=== PATIENT | female | born 1995 | race Caucasian/White ===

== ENCOUNTER 2016-09-09 01:45 | Emergency (ER) | payer OTHER ==
[2016-09-09 01:59] VITALS: BP 150/79; PULSE 114; TEMP 98.5; BMI 35.9
[2016-09-09] MEDS ORDERED: SODIUM CHLORIDE 1,000 ML IV STA (02:14)
--- NOTE | 2016-09-09 02:22 | PDOC ---
History of Present Illness - General Stated Complaint: FLU SYMPTOM Time Seen by Provider: 09/09/16 02:01 History Source: Patient, Significant Other Exam Limitations: No Limitations - History of Present Illness Initial Comments: 09/09/16 02:16 21yo Female patient presented to ED via EMS with boyfriend c/o general illness and panic attack. Boyfriend states patient diagnosed with influenza yesterday at Urgent Care. Patient went to urgent care because of fever 101.6 and panic attack due to not feeling well. Patient prescribed Tamiflu and cough suppressant per boyfriend. Po solids and liquid intake normal. Patient got up to use bathroom this am and fell to floor hyperventilating because "I am not feeling well." Boyfriend reports patient has never been sick. LNMP: 1st week of Aug. Patient denies fever, CP, Abd pain, n/v/d, rash, change in appetite, hematuria, dysuria, vaginal bleeding, discharge or odor. She denies any other complaints. Timing/Duration: other (2 days.) Modifying Factors: worse with: cold therapy, eating, immobilization, medication , movement, rest, other Associated Symptoms: denies: denies symptoms, chest pain, cough, diaphoresis, fever/chills, headaches, loss of appetite, malaise, nausea/vomiting, rash, seizure, shortness of breath, syncope, weakness, other Past History - Travel Traveled outside of the country in the last 30 days: No Close contact w/someone who was outside of country & ill: No - Past Medical History Allergies/Adverse Reactions: Allergies Allergy/AdvReac Type Severity Reaction Status Date / Time No Known Allergies Allergy Verified 09/09/16 01:59 Psychiatric Problems: Yes (anxiety) - Psycho/Social/Smoking Cessation Hx Suicidal Ideation: No Smoking History: Never smoked Review of Systems - Review of Systems Able to Perform ROS?: Yes Is the patient limited Andorran proficient: No Constitutional: No: Chills, Fever HEENTM: No: Blurred Vision, Double Vision, Nose Congestion, Throat Pain, Difficulty Swallowing, Mouth Swelling Respiratory: No: Cough, Shortness of Breath, Stridor, Wheezing, Productive cough , Hemoptysis Cardiac (ROS): No: Chest Pain, Lightheadedness, Palpitations, Syncope ABD/GI: No: Constipated, Diarrhea, Nausea, Poor Appetite, Poor Fluid Intake, Vomiting : No: Burning, Dysuria, Discharge, Frequency, Flank Pain, Hematuria, Pain, Urgency Musculoskeletal: Yes: Muscle Weakness. No: Back Pain, Muscle Pain, Neck Pain Integumentary: No: Bruising, Erythema, Rash Neurological: Yes: Tingling (In fingertips.). No: Headache, Numbness, Paresthesia, Seizure, Tremors, Weakness Psychiatric: Yes: Stressors All Other Systems: Reviewed and Negative *Physical Exam - Vital Signs Last Vital Signs Temp Pulse Resp BP Pulse Ox 98.5 F 114 H 20 150/79 100 09/09/16 01:56 09/09/16 01:56 09/09/16 01:56 09/09/16 01:56 09/09/16 01:56 - Physical Exam General Appearance: Yes: Nourished, Appropriately Dressed. No: Apparent Distress, Mild Distress, Moderate Distress, Severe Distress HEENT: positive: EOMI, ARLENE, Normal ENT Inspection, Normal Voice, Symmetrical, TMs Normal, Pharynx Normal. negative: Pharyngeal Erythema, Tonsillar Exudate, Tonsillar Erythema, TM Bulging, TM Dull, TM Erythema Neck: positive: Trachea midline, Normal Thyroid, Supple. negative: Tender, Rigid, Decreased range of motion, Stridor, Lymphadenopathy (R), Lymphadenopathy (L) Respiratory/Chest: positive: Lungs Clear, Normal Breath Sounds. negative: Respiratory Distress, Accessory Muscle Use, Labored Respiration, Rapid RR Cardiovascular: positive: Regular Rhythm, Regular Rate. negative: Edema, JVD, Murmur Gastrointestinal/Abdominal: positive: Normal Bowel Sounds, Soft. negative: Guarding, Rebound, Tenderness Lymphatic: negative: Adenopathy Musculoskeletal: positive: Normal Inspection. negative: CVA Tenderness, Decreased Range of Motion Extremity: positive: Normal Capillary Refill, Normal Inspection, Normal Range of Motion. negative: Tender, Pedal Edema, Swelling Integumentary: positive: Normal Color, Dry, Warm. 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 CALL TO SCHEDULE APPOINTMENT. DRINK LOTS OF WATER. GET REST. RETURN IF SYMPTOMS WORSEN OR ANY CONCERNS FOR FURTHER EVALUATION. Print Language: TAIWANESE - Post Discharge Activity Work/School Note: Back to Work
[2016-09-09 02:47] LABS: BASOPHIL 0.6 % (0-2.0); EOSINOPHIL 1.9 % (0-4.5); MCH 29.8 pg (25.7-33.7); MCHC 34.3 g/dl (32.0-36.0); MEAN CELL VOLUME 86.9 fl (80-96); MEAN PLT VOLUME 8.3 fl (7.5-11.1); NEUTROPHILS 69.8 % (42.8-82.8); PLATELET COUNT 196 K/MM3 (134-434); RDW 12.9 % (11.6-15.6); WHITE BLOOD COUNT 8.8 K/mm3 (4.0-10.0)
[2016-09-09 03:04] LABS: CALCIUM 9.2 mg/dL (8.5-10.1); CREATININE 0.9 mg/dL (0.55-1.02)
[2016-09-09 03:51] LABS: URINE APPEARANCE CLEAR; URINE BILIRUBIN NEGATIVE (NEGATIVE); URINE BLOOD NEGATIVE (NEGATIVE); URINE COLOR LTYELLOW; URINE GLUCOSE (UA) NEGATIVE (NEGATIVE); URINE KETONE TRACE (NEGATIVE); URINE LEUK ESTERASE NEGATIVE (NEGATIVE); URINE NITRITE NEGATIVE (NEGATIVE); URINE PROTEIN NEGATIVE (NEGATIVE); URINE UROBILINOGEN NEGATIVE E.U./dl (0.2-1.0)
== END 2016-09-09 05:06 | disposition home or self-care (01) ==
LOC: JER 01:45
DX: F41.0 Panic disorder [episodic paroxysmal anxiety] (principal); J10.1 Influenza due to other identified influenza virus with other respiratory manifestations
CPT/HCPCS: 36415; 80048; 81003; 84703; 85025; 99282-25

== ENCOUNTER 2023-06-04 16:26 | Emergency (ER) | payer BC, OTHER ==
[2023-06-04 16:32] VITALS: BP 124/75; PULSE 98; RESP 20; TEMP 98.5; BMI 38.4
[2023-06-04] MEDS ORDERED: ACETAMINOPHEN 1000 MG/100 ML BAG IVPB ONE (17:16)
[2023-06-04] MEDS ORDERED: SODIUM CHLORIDE 1,000 ML IV STA (17:16)
[2023-06-04] MEDS ORDERED: LIDOCAINE 4% PATCH TP ONE ×2 (17:16→17:48)
[2023-06-04] MEDS ORDERED: ACETAMINOPHEN INJECTION 100 ML IVPB ONE (17:47)
[2023-06-04 17:58] LABS: BASO % 0.5 % (0-2.0); EOS % 1.5 % (0-4.5); HEMOGLOBIN 14.1 GM/dL (10.7-15.3); LYMPH % 22.7 % (8-40); MCH 28.1 pg (25.7-33.7); MCHC 33.6 g/dl (32.0-36.0); MEAN CELL VOLUME 83.6 fl (80-96); MEAN PLT VOLUME 7.3 fl (7.5-11.1); NEUT % 71.3 % (42.8-82.8); PLATELET COUNT 284 10^3/uL (134-434); RBC 5.03 M/mm3 (3.60-5.2); RDW 12.8 % (11.6-15.6); WHITE BLOOD COUNT 11.8 K/mm3 (4.0-10.0)
[2023-06-04 18:09] LABS: URINE APPEARANCE CLEAR; URINE BILIRUBIN NEGATIVE (NEGATIVE); URINE COLOR YELLOW; URINE GLUCOSE (UA) NEGATIVE (NEGATIVE); URINE KETONE NEGATIVE (NEGATIVE); URINE LEUK ESTERASE NEGATIVE (NEGATIVE); URINE NITRITE NEGATIVE (NEGATIVE); URINE PROTEIN NEGATIVE (NEGATIVE); URINE UROBILINOGEN 0.2 mg/dL (0.2-1.0)
[2023-06-04 18:12] LABS: HCG,QUALITATIVE URINE Negative
[2023-06-04 18:20] LABS: POTASSIUM 4.1 mmol/L (3.5-5.1)
[2023-06-04 18:23] LABS: CALCIUM 8.9 mg/dL (8.5-10.1)
[2023-06-04 18:24] LABS: ALBUMIN 3.6 g/dl (3.4-5.0); BLOOD UREA NITROGEN 9.8 mg/dL (7-18)
[2023-06-04 18:26] LABS: CREATININE 0.9 mg/dL (0.55-1.3)
[2023-06-04 18:28] LABS: BILIRUBIN,TOTAL 0.5 mg/dL (0.2-1); TOT PROT 7.1 g/dl (6.4-8.2)
[2023-06-04] MEDS ORDERED: KETOROLAC TROMETHAMINE 30 MG/1 ML VIAL IVPUSH ONE (18:36)
[2023-06-04] MEDS ORDERED: KETOROLAC TROMETHAMINE 30 MG/1 ML VIAL ONE (18:55)
== END 2023-06-04 19:17 | disposition home or self-care (01) ==
LOC: JER 16:26
PROC: 3E033NZ Introduction of Analgesics, Hypnotics, Sedatives into Peripheral Vein, Percutaneous Approach (ICD-10-PCS; principal; 2023-06-04)
PROC: 3E0333Z Introduction of Anti-inflammatory into Peripheral Vein, Percutaneous Approach (ICD-10-PCS; 2023-06-04)
PROC: 3E0337Z Introduction of Electrolytic and Water Balance Substance into Peripheral Vein, Percutaneous Approach (ICD-10-PCS; 2023-06-04)
DX: M54.50 Low back pain, unspecified (principal)
CPT/HCPCS: 36415; 80053; 81003; 84703; 85025; 87086; 99284-25